=== PATIENT | female | born 1945 | race Caucasian/White ===

== ENCOUNTER 2017-06-01 06:57 | Emergency (ER) | payer MEDICARE, MEDICAID ==
[~2017-06-01] VITALS: Ht 157.5 cm; Wt 68.5 kg
[2017-06-01 09:17] VITALS: BP 145/53
[2017-06-01 09:28] LABS: Basophils # (auto) 0 uL; Eosinophils # (auto) 0.1 uL; Eosinophils % (auto) 2.1 % (0.0-7.0); Hematocrit 41.4 % (36.0-46.0); Hemoglobin 12.5 g/dL (12.2-16.2); Lymphocytes # (auto) 0.4 uL; Lymphocytes % (auto) 14.8 % (10.0-50.0); Mean Corpuscular Hemoglobin 29.5 pg (28.0-32.0); Mean Corpuscular Hgb Conc. 30.2 g/dL (32.0-36.0); Mean Corpuscular Volume 97.8 fL (80.0-100.0); Mean Platelet Volume 8.8 fL (6.9-10.8); Monocytes # (auto) 0.5 uL; Monocytes % (auto) 15.9 % (0.0-12.0); Neutrophils # (auto) 1.9 uL; Neutrophils % (auto) 66.2 % (37.0-80.0); Nucleated Red Blood Cells % 0.1 %; Platelet Count (auto) 84 10^3/uL (140-450); Red Cell Distribution Width 19.8 % (11.8-14.3); White Blood Cell 2.9 10^3/uL (4.4-10.8)
[2017-06-01 09:31] LABS: INR 2.19 (0.9-1.15); Partial Thromboplastin Time 36.5 sec (22.64-33.71); Prothrombin Time 24.1 sec (9.37-12.3)
[2017-06-01 09:42] LABS: Calcium 9.3 mg/dL (8.5-10.1); Potassium 3.9 mmol/L (3.5-5.1)
== END 2017-06-01 11:13 | disposition home or self-care (01) ==
LOC: ER 06:57
DX: T81.89XA Other complications of procedures, not elsewhere classified, initial encounter (principal); K08.89 Other specified disorders of teeth and supporting structures; Z91.040 Latex allergy status; Y92.89 Other specified places as the place of occurrence of the external cause; Y93.89 Activity, other specified; Y99.8 Other external cause status
CPT/HCPCS: 36415; 80048; 85025; 85610; 85730

== ENCOUNTER 2017-09-14 15:52 | Inpatient (IN) | payer BC, MEDICAID ==
[~2017-09-14] VITALS: Ht 157.5 cm; Wt 74.5 kg
[2017-09-14 16:49] LABS: Basophils # (auto) 0 uL; Eosinophils # (auto) 0 uL; Lymphocytes # (auto) 0.2 uL; Lymphocytes % (auto) 7.6 % (10.0-50.0); Neutrophils # (auto) 2.3 uL; Nucleated Red Blood Cells % 0.1 %
[2017-09-14 17:04] LABS: INR 2.37 (0.9-1.15); Partial Thromboplastin Time 37.2 sec (22.64-33.71); Prothrombin Time 26.1 sec (9.37-12.3)
[2017-09-14 17:05] LABS: Eosinophils % (auto) 1.1 % (0.0-7.0); Mean Corpuscular Hemoglobin 29.1 pg (28.0-32.0); Mean Corpuscular Hgb Conc. 32.5 g/dL (32.0-36.0); Mean Corpuscular Volume 89.3 fL (80.0-100.0); Monocytes # (auto) 0.6 uL; Monocytes % (auto) 17.6 % (0.0-12.0); Neutrophils % (auto) 72.7 % (37.0-80.0); Platelet Count (auto) 113 10^3/uL (140-450); Red Blood Cells 4.14 10^6/uL (4.0-5.20); Red Cell Distribution Width 19.8 % (11.8-14.3); White Blood Cell 3.1 10^3/uL (4.4-10.8)
[2017-09-14 17:08] LABS: Albumin 3.2 g/dL (3.4-5.0); BUN/Creatinine Ratio 35.2; Calcium 8.5 mg/dL (8.5-10.1); Magnesium 2.2 mg/dL (1.6-2.6)
[2017-09-14 17:13] LABS: Bilirubin, Total 2.3 mg/dL (0.2-1.0); Total Protein 7.4 g/dL (6.4-8.2)
[2017-09-14] MEDS ORDERED: MORPHINE SULFATE 4 MG/ML SYR/VIAL IV PRN ×3 (19:00)
[2017-09-14] MEDS ORDERED: FUROSEMIDE 40 MG/4 ML VIAL IV ONE (19:00)
[2017-09-14] MEDS ORDERED: NITROGLYCERIN 0.4 MG SL TAB SL PRN (19:00)
[2017-09-14] MEDS ORDERED: POTASSIUM CHL 20 Meq TABLET PO ONE (19:00)
[2017-09-14] MEDS ORDERED: LACTULOSE 20Gm/30ML SOLN PO PRN (19:00)
[2017-09-14] MEDS ORDERED: PANTOPRAZOLE 40 MG TAB PO ONE (19:00)
[2017-09-14] MEDS ORDERED: LORazepam 0.5 MG TAB PO PRN (19:00)
[2017-09-14] MEDS ORDERED: PROMETHAZINE HCL 25 MG/ML 1ML IV PRN (19:00)
[2017-09-14] MEDS: NITROGLYCERIN 0.2MG/HR TOPICAL PATCH TD SCH (19:01)
[2017-09-14] MEDS ORDERED: WARFARIN SODIUM 5 MG TAB PO ONE (19:15)
[2017-09-14] MEDS ORDERED: SPIRONOLACTONE 25 MG TAB PO ONE (19:15)
[2017-09-14 19:32] LABS: Amylase 71 U/L (25-115); Lipase 174 U/L (73-393)
[2017-09-14] MEDS: FUROSEMIDE 40 MG/4 ML VIAL IV SCH (19:55)
[2017-09-14 21:00] VITALS: BP 135/61
[2017-09-15] VITALS (7 sets, daily range): BP systolic 106–135; BP diastolic 33–61
[2017-09-15 01:14] LABS: Urine Bacteria FEW /hpf (None Seen); Urine Blood 3+ /uL (Negative); Urine Hyaline Cast MANY /lpf (0 - 2); Urine Mucus FEW (None Seen); Urine Specific Gravity 1.014 (1.001-1.035); Urine WBC 148 /hpf (0 - 5); Urine WBC Clumps PRESENT /hpf (None Seen)
[2017-09-15] MEDS ORDERED: cefTRIAXone 1GM/10ml IVPUSH 10 ML IV ONE (06:30)
[2017-09-15] MEDS: FUROSEMIDE 40 MG/4 ML VIAL IV SCH ×2 (06:48→18:18)
[2017-09-15] MEDS: ACETAMINOPHEN 500 MG TAB PO PRN (06:49)
[2017-09-15 06:57] LABS: Hematocrit 36.4 % (36.0-46.0); Mean Corpuscular Hemoglobin 29.6 pg (28.0-32.0); Mean Corpuscular Hgb Conc. 33.1 g/dL (32.0-36.0); Mean Corpuscular Volume 89.5 fL (80.0-100.0); Platelet Count (auto) 109 10^3/uL (140-450); Red Blood Cells 4.06 10^6/uL (4.0-5.20); Red Cell Distribution Width 19.8 % (11.8-14.3); White Blood Cell 3.8 10^3/uL (4.4-10.8)
[2017-09-15 06:59] LABS: Band Neutrophils % (manual) 0; Basophils % (manual) 0 (0.0-2.0); Blast Cells 0; Metamyelocytes % 0; Myelocytes % 0; Promyelocytes % 0; Reactive Lymphocytes 0
[2017-09-15 07:04] LABS: INR 2.07 (0.9-1.15); Partial Thromboplastin Time 37.3 sec (22.64-33.71); Prothrombin Time 22.7 sec (9.37-12.3)
[2017-09-15 07:33] LABS: Albumin 3.2 g/dL (3.4-5.0); BUN/Creatinine Ratio 36.8; Bilirubin, Total 2.3 mg/dL (0.2-1.0); Calcium 8.7 mg/dL (8.5-10.1); Potassium 4.6 mmol/L (3.5-5.1); Total Protein 7.5 g/dL (6.4-8.2)
[2017-09-15 08:33] LABS: Eosinophils % (manual) 1 (0-7); Lymphocytes % (manual) 12 (10.0-50.0); Monocytes % (manual) 15 (0-12)
[2017-09-15] MEDS: PANTOPRAZOLE 40 MG TAB PO SCH (09:35)
[2017-09-15] MEDS: SPIRONOLACTONE 25 MG TAB PO SCH (09:36)
[2017-09-15] MEDS: POTASSIUM CHL 20 Meq TABLET PO SCH (09:36)
[2017-09-15] MEDS: ENALAPRIL MALEATE 2.5 MG TAB PO SCH (09:37)
[2017-09-15] MEDS ORDERED: FUROSEMIDE 40 MG/4 ML VIAL IV SCH (10:00)
[2017-09-15] MEDS ORDERED: METO25TA5 PO (10:54)
[2017-09-15] MEDS ORDERED: BUME2TAB3 PO (10:54)
[2017-09-15] MEDS ORDERED: CHOL200031 PO (10:54)
[2017-09-15] MEDS ORDERED: TRIA0.5C10 TOP (10:54)
[2017-09-15] MEDS ORDERED: IBUP800T24 PO (10:54)
[2017-09-15] MEDS ORDERED: LEVO175T31 PO (10:54)
[2017-09-15] MEDS ORDERED: WARF1TAB36 PO (10:54)
[2017-09-15] MEDS ORDERED: HYDR-4683 PO (10:54)
[2017-09-15] MEDS ORDERED: WARF4TAB33 PO (10:54)
[2017-09-15] MEDS ORDERED: DIGO0.1262 PO (10:54)
[2017-09-15] MEDS ORDERED: LOSA50TA6 PO (10:54)
[2017-09-15] MEDS ORDERED: BUPR100T14 PO (10:54)
[2017-09-15] MEDS ORDERED: WARFARIN SODIUM 2 MG TAB PO ONE (17:00)
[2017-09-15] MEDS: NITROGLYCERIN 0.2MG/HR TOPICAL PATCH TD SCH (18:19)
[2017-09-15] MEDS: CIPROFLOXACIN 0.3%OPTH(EYE) SOL 5ML LEFTEYE SCH (22:00)
[2017-09-16] MEDS: CIPROFLOXACIN 0.3%OPTH(EYE) SOL 5ML LEFTEYE SCH ×4 (01:43→14:23)
[2017-09-16 04:50] VITALS: BP 96/27
[2017-09-16] MEDS: FUROSEMIDE 40 MG/4 ML VIAL IV SCH ×2 (06:23→17:24)
[2017-09-16 07:59] LABS: INR 2.04 (0.9-1.15); Partial Thromboplastin Time 31.5 sec (22.64-33.71); Prothrombin Time 22.4 sec (9.37-12.3)
[2017-09-16 08:12] VITALS: BP 115/72
[2017-09-16] MEDS: cefTRIAXone 1GM/10ml IVPUSH 10 ML IV SCH (09:40)
[2017-09-16] MEDS: POTASSIUM CHL 20 Meq TABLET PO SCH (09:40)
[2017-09-16] MEDS: PANTOPRAZOLE 40 MG TAB PO SCH (09:41)
[2017-09-16] MEDS: ENALAPRIL MALEATE 2.5 MG TAB PO SCH (09:41)
[2017-09-16] MEDS: SPIRONOLACTONE 25 MG TAB PO SCH (09:41)
[2017-09-16 12:57] VITALS: BP 126/73
[2017-09-16] MEDS: ACETAMINOPHEN 500 MG TAB PO PRN (14:27)
[2017-09-16] MEDS ORDERED: WARFARIN SODIUM 2.5 MG TAB PO ONE (17:00)
[2017-09-16 17:16] VITALS: BP 105/65
[2017-09-16] MEDS: NITROGLYCERIN 0.2MG/HR TOPICAL PATCH TD SCH (17:23)
[2017-09-16 20:00] VITALS: BP 115/49
[2017-09-16 22:00] VITALS: BP 115/49
[2017-09-17 05:00] VITALS: BP 110/53
[2017-09-17] MEDS: FUROSEMIDE 40 MG/4 ML VIAL IV SCH ×2 (05:53→16:57)
[2017-09-17 06:56] LABS: INR 2.27 (0.9-1.15); Partial Thromboplastin Time 40.1 sec (22.64-33.71); Prothrombin Time 24.9 sec (9.37-12.3)
[2017-09-17 09:00] VITALS: BP 112/47
[2017-09-17] MEDS: PANTOPRAZOLE 40 MG TAB PO SCH (10:53)
[2017-09-17] MEDS: ENALAPRIL MALEATE 2.5 MG TAB PO SCH (10:53)
[2017-09-17] MEDS: cefTRIAXone 1GM/10ml IVPUSH 10 ML IV SCH (10:53)
[2017-09-17] MEDS: POTASSIUM CHL 20 Meq TABLET PO SCH (10:53)
[2017-09-17] MEDS: SPIRONOLACTONE 25 MG TAB PO SCH (10:54)
[2017-09-17] MEDS: HYDROcodone-ACET 5/325MG TAB PO PRN (11:04)
[2017-09-17 12:33] VITALS: BP 128/67
[2017-09-17 16:40] VITALS: BP 123/62
[2017-09-17] MEDS: NITROGLYCERIN 0.2MG/HR TOPICAL PATCH TD SCH (16:57)
[2017-09-17] MEDS ORDERED: WARFARIN SODIUM 5 MG TAB PO ONE (17:00)
[2017-09-17 20:00] VITALS: BP 117/35
[2017-09-17 22:00] VITALS: BP 117/35
[2017-09-18 05:00] VITALS: BP 128/70
[2017-09-18] MEDS: FUROSEMIDE 40 MG/4 ML VIAL IV SCH (05:54)
[2017-09-18 05:56] LABS: INR 2.5 (0.9-1.15); Prothrombin Time 27.5 sec (9.37-12.3)
[2017-09-18 06:15] LABS: Albumin 3.2 g/dL (3.4-5.0); BUN/Creatinine Ratio 40.8; Bilirubin, Total 1.3 mg/dL (0.2-1.0); Calcium 8.2 mg/dL (8.5-10.1); Potassium 5.5 mmol/L (3.5-5.1); Total Protein 7.8 g/dL (6.4-8.2)
[2017-09-18] MEDS: ACETAMINOPHEN 500 MG TAB PO PRN (06:21)
[2017-09-18 08:15] VITALS: BP 120/61
[2017-09-18] MEDS ORDERED: SODIUM CHLORIDE 0.9% 1,000 ML IV ONE (08:15)
[2017-09-18] MEDS ORDERED: SODIUM POLYSTYRENE SULF 15GM/60ML SUSP PO ONE (08:15)
[2017-09-18 08:28] VITALS: BP 120/61
[2017-09-18] MEDS: PANTOPRAZOLE 40 MG TAB PO SCH (09:52)
[2017-09-18] MEDS: SPIRONOLACTONE 25 MG TAB PO SCH (09:52)
[2017-09-18] MEDS: cefTRIAXone 1GM/10ml IVPUSH 10 ML IV SCH (09:52)
[2017-09-18] MEDS: POTASSIUM CHL 20 Meq TABLET PO SCH (09:53)
[2017-09-18] MEDS: FUROSEMIDE INJECTION 250 MG in SODIUM CHL 0.9% 225 ML IV SCH (10:30)
[2017-09-18 12:17] VITALS: BP 114/52
[2017-09-18] MEDS: HYDROcodone-ACET 5/325MG TAB PO PRN (15:28)
[2017-09-18 16:17] VITALS: BP 141/61
[2017-09-18] MEDS ORDERED: WARFARIN SODIUM 1 MG TAB PO ONE (17:00)
[2017-09-18] MEDS: NITROGLYCERIN 0.2MG/HR TOPICAL PATCH TD SCH (18:20)
[2017-09-18 22:00] VITALS: BP 124/66
[2017-09-18] MEDS: TEMAZEPAM 15 MG CAP PO PRN (22:55)
[2017-09-19 05:00] VITALS: BP 109/54
[2017-09-19 07:39] LABS: INR 2.81 (0.9-1.15); Partial Thromboplastin Time 32.4 sec (22.64-33.71)
[2017-09-19 07:58] LABS: Albumin 3.1 g/dL (3.4-5.0); BUN/Creatinine Ratio 45.6; Calcium 8.2 mg/dL (8.5-10.1)
[2017-09-19 08:02] LABS: Bilirubin, Total 1.2 mg/dL (0.2-1.0); Total Protein 7.4 g/dL (6.4-8.2)
[2017-09-19 09:00] VITALS: BP 136/77
[2017-09-19] MEDS: SPIRONOLACTONE 25 MG TAB PO SCH (10:25)
[2017-09-19] MEDS: cefTRIAXone 1GM/10ml IVPUSH 10 ML IV SCH (10:25)
[2017-09-19] MEDS: FUROSEMIDE INJECTION 250 MG in SODIUM CHL 0.9% 225 ML IV SCH (10:25)
[2017-09-19] MEDS: POTASSIUM CHL 20 Meq TABLET PO SCH (10:25)
[2017-09-19] MEDS: PANTOPRAZOLE 40 MG TAB PO SCH (10:26)
[2017-09-19 12:23] VITALS: BP 130/80
[2017-09-19 17:06] VITALS: BP 119/65
[2017-09-19] MEDS ORDERED: LIDOCAINE 1% HCL (LOCAL ANESTH.) INJ 20ML MDV ID ONE (18:00)
[2017-09-19] MEDS: NITROGLYCERIN 0.2MG/HR TOPICAL PATCH TD SCH (18:19)
[2017-09-19 22:00] VITALS: BP 125/53
[2017-09-19] MEDS: SODIUM CHLOR 0.9% PF (SALINE LOCK) 10ML VIAL IV SCH (22:17)
[2017-09-19] MEDS: TEMAZEPAM 15 MG CAP PO PRN (22:17)
[2017-09-19] MEDS: HYDROcodone-ACET 5/325MG TAB PO PRN (23:46)
[2017-09-20 05:00] VITALS: BP 140/60
[2017-09-20 06:23] LABS: Basophils # (auto) 0 uL; Basophils % (auto) 1.1 % (0.0-2.0); Eosinophils # (auto) 0.1 uL; Eosinophils % (auto) 1.6 % (0.0-7.0); Hemoglobin 11.4 g/dL (12.2-16.2); Lymphocytes # (auto) 0.3 uL; Lymphocytes % (auto) 8.7 % (10.0-50.0); Mean Corpuscular Hemoglobin 29.2 pg (28.0-32.0); Mean Corpuscular Hgb Conc. 32.6 g/dL (32.0-36.0); Mean Corpuscular Volume 89.7 fL (80.0-100.0); Monocytes # (auto) 0.5 uL; Monocytes % (auto) 15.8 % (0.0-12.0); Neutrophils # (auto) 2.4 uL; Neutrophils % (auto) 72.8 % (37.0-80.0); Nucleated Red Blood Cells % 0.1 %; Platelet Count (auto) 111 10^3/uL (140-450); White Blood Cell 3.2 10^3/uL (4.4-10.8)
[2017-09-20 06:38] LABS: INR 2.25 (0.9-1.15); Partial Thromboplastin Time 40.2 sec (22.64-33.71); Prothrombin Time 24.7 sec (9.37-12.3)
[2017-09-20 06:47] LABS: BUN/Creatinine Ratio 46.7; Calcium 8.4 mg/dL (8.5-10.1); Magnesium 2.4 mg/dL (1.6-2.6); Potassium 4.4 mmol/L (3.5-5.1)
[2017-09-20 09:00] VITALS: BP 138/61
[2017-09-20] MEDS: PANTOPRAZOLE 40 MG TAB PO SCH (09:32)
[2017-09-20] MEDS: SPIRONOLACTONE 25 MG TAB PO SCH (09:32)
[2017-09-20] MEDS: POTASSIUM CHL 20 Meq TABLET PO SCH (09:32)
[2017-09-20] MEDS: SODIUM CHLOR 0.9% PF (SALINE LOCK) 10ML VIAL IV SCH ×2 (09:34→22:00)
[2017-09-20] MEDS: FUROSEMIDE INJECTION 250 MG in SODIUM CHL 0.9% 225 ML IV SCH (09:34)
[2017-09-20] MEDS: cefTRIAXone 1GM/10ml IVPUSH 10 ML IV SCH (09:44)
[2017-09-20 13:00] VITALS: BP 126/60
[2017-09-20 15:00] LABS: Urine Bacteria FEW /hpf (None Seen); Urine Blood 3+ /uL (Negative); Urine Specific Gravity 1.008 (1.001-1.035); Urine WBC 1 /hpf (0 - 5)
[2017-09-20 15:18] LABS: Hematocrit 35.5 % (36.0-46.0); Hemoglobin 11.5 g/dL (12.2-16.2)
[2017-09-20 16:40] VITALS: BP 125/64
[2017-09-20] MEDS ORDERED: WARFARIN SODIUM 2.5 MG TAB PO ONE (17:00)
[2017-09-20] MEDS: NITROGLYCERIN 0.2MG/HR TOPICAL PATCH TD SCH (17:23)
[2017-09-20] MEDS: HYDROcodone-ACET 5/325MG TAB PO PRN (20:11)
[2017-09-20 22:00] VITALS: BP 136/62
[2017-09-21] VITALS (7 sets, daily range): BP systolic 121–139; BP diastolic 58–76
[2017-09-21 05:40] LABS: Hematocrit 34.4 % (36.0-46.0); Hemoglobin 11.3 g/dL (12.2-16.2); Mean Corpuscular Hemoglobin 29.4 pg (28.0-32.0); Mean Corpuscular Hgb Conc. 32.9 g/dL (32.0-36.0); Mean Corpuscular Volume 89.3 fL (80.0-100.0); Platelet Count (auto) 117 10^3/uL (140-450); Red Blood Cells 3.85 10^6/uL (4.0-5.20); Red Cell Distribution Width 19.3 % (11.8-14.3); White Blood Cell 3.2 10^3/uL (4.4-10.8)
[2017-09-21 05:52] LABS: Band Neutrophils % (manual) 0
[2017-09-21 05:53] LABS: Basophils % (manual) 0 (0.0-2.0); Blast Cells 0; INR 1.89 (0.9-1.15); Metamyelocytes % 0; Myelocytes % 0; Promyelocytes % 0; Prothrombin Time 20.7 sec (9.37-12.3); Reactive Lymphocytes 0
[2017-09-21 05:58] LABS: BUN/Creatinine Ratio 42.7; Calcium 8.5 mg/dL (8.5-10.1); Magnesium 2.2 mg/dL (1.6-2.6); Potassium 4.4 mmol/L (3.5-5.1)
[2017-09-21 07:04] LABS: Eosinophils % (manual) 3 (0-7); Lymphocytes % (manual) 7 (10.0-50.0); Monocytes % (manual) 11 (0-12)
[2017-09-21] MEDS: FUROSEMIDE INJECTION 250 MG in SODIUM CHL 0.9% 225 ML IV SCH (09:27)
[2017-09-21] MEDS: SODIUM CHLOR 0.9% PF (SALINE LOCK) 10ML VIAL IV SCH ×2 (09:27→21:45)
[2017-09-21] MEDS: PANTOPRAZOLE 40 MG TAB PO SCH (09:28)
[2017-09-21] MEDS: SPIRONOLACTONE 25 MG TAB PO SCH (09:28)
[2017-09-21] MEDS: POTASSIUM CHL 20 Meq TABLET PO SCH (09:28)
[2017-09-21] MEDS: ALBUMIN 25% 100 ML IV SCH ×2 (12:28→18:02)
[2017-09-21] MEDS ORDERED: WARFARIN SODIUM 5 MG TAB PO ONE (17:00)
[2017-09-21] MEDS: NITROGLYCERIN 0.2MG/HR TOPICAL PATCH TD SCH (18:00)
[2017-09-21] MEDS: HYDROcodone-ACET 5/325MG TAB PO PRN (21:45)
[2017-09-22] MEDS: ALBUMIN 25% 100 ML IV SCH ×4 (00:15→17:33)
[2017-09-22] MEDS: ACETAMINOPHEN 500 MG TAB PO PRN (00:16)
[2017-09-22 04:54] VITALS: BP 138/63
[2017-09-22 05:51] LABS: Basophils # (auto) 0 uL; Basophils % (auto) 0.7 % (0.0-2.0); Eosinophils # (auto) 0.1 uL; Hemoglobin 11.2 g/dL (12.2-16.2); Lymphocytes # (auto) 0.3 uL; Lymphocytes % (auto) 7.4 % (10.0-50.0); Mean Corpuscular Hemoglobin 29.7 pg (28.0-32.0); Monocytes # (auto) 0.6 uL; Monocytes % (auto) 15.7 % (0.0-12.0); Neutrophils # (auto) 2.8 uL; Neutrophils % (auto) 74.2 % (37.0-80.0); Nucleated Red Blood Cells % 0.2 %; Platelet Count (auto) 103 10^3/uL (140-450); Red Blood Cells 3.77 10^6/uL (4.0-5.20); Red Cell Distribution Width 19.3 % (11.8-14.3); White Blood Cell 3.8 10^3/uL (4.4-10.8)
[2017-09-22 06:01] LABS: INR 1.73 (0.9-1.15)
[2017-09-22 06:13] LABS: Calcium 8.8 mg/dL (8.5-10.1); Magnesium 2.1 mg/dL (1.6-2.6); Potassium 4.4 mmol/L (3.5-5.1)
[2017-09-22 06:15] LABS: BUN/Creatinine Ratio 37.3
[2017-09-22 08:00] VITALS: BP 159/89
[2017-09-22] MEDS: FUROSEMIDE INJECTION 250 MG in SODIUM CHL 0.9% 225 ML IV SCH (08:47)
[2017-09-22] MEDS: PANTOPRAZOLE 40 MG TAB PO SCH (09:55)
[2017-09-22] MEDS: POTASSIUM CHL 20 Meq TABLET PO SCH (09:55)
[2017-09-22] MEDS: SODIUM CHLOR 0.9% PF (SALINE LOCK) 10ML VIAL IV SCH ×2 (09:55→22:00)
[2017-09-22] MEDS: SPIRONOLACTONE 25 MG TAB PO SCH (09:55)
[2017-09-22 12:28] VITALS: BP 138/64
[2017-09-22] MEDS ORDERED: WARFARIN SODIUM 5 MG TAB PO ONE (17:00)
[2017-09-22 17:02] VITALS: BP 147/70
[2017-09-22] MEDS: NITROGLYCERIN 0.2MG/HR TOPICAL PATCH TD SCH (17:34)
[2017-09-22 20:00] VITALS: BP 154/67
[2017-09-22] MEDS: LACTULOSE 20Gm/30ML SOLN PO SCH (21:16)
[2017-09-22 21:30] VITALS: BP 154/67
[2017-09-23 05:00] VITALS: BP 143/60
[2017-09-23 06:39] LABS: Basophils # (auto) 0 uL; Basophils % (auto) 0.9 % (0.0-2.0); Eosinophils # (auto) 0.1 uL; Eosinophils % (auto) 1.7 % (0.0-7.0); Hematocrit 34.1 % (36.0-46.0); Hemoglobin 11.3 g/dL (12.2-16.2); Lymphocytes # (auto) 0.2 uL; Lymphocytes % (auto) 4.9 % (10.0-50.0); Mean Corpuscular Hgb Conc. 33.2 g/dL (32.0-36.0); Mean Corpuscular Volume 90.3 fL (80.0-100.0); Monocytes # (auto) 0.7 uL; Monocytes % (auto) 15.9 % (0.0-12.0); Neutrophils # (auto) 3.2 uL; Neutrophils % (auto) 76.6 % (37.0-80.0); Nucleated Red Blood Cells % 0.1 %; Platelet Count (auto) 107 10^3/uL (140-450); Red Blood Cells 3.78 10^6/uL (4.0-5.20); Red Cell Distribution Width 19.6 % (11.8-14.3); White Blood Cell 4.2 10^3/uL (4.4-10.8)
[2017-09-23 06:53] LABS: INR 1.53 (0.9-1.15); Partial Thromboplastin Time 35.5 sec (22.64-33.71); Prothrombin Time 16.7 sec (9.37-12.3)
[2017-09-23 07:02] LABS: BUN/Creatinine Ratio 37.8; Calcium 9.4 mg/dL (8.5-10.1); Potassium 4.7 mmol/L (3.5-5.1)
[2017-09-23 09:00] VITALS: BP 145/80
[2017-09-23] MEDS: SODIUM CHLOR 0.9% PF (SALINE LOCK) 10ML VIAL IV SCH ×2 (09:54→21:34)
[2017-09-23] MEDS: LACTULOSE 20Gm/30ML SOLN PO SCH ×2 (09:54→21:33)
[2017-09-23] MEDS: SPIRONOLACTONE 25 MG TAB PO SCH ×2 (09:54→17:55)
[2017-09-23] MEDS: PANTOPRAZOLE 40 MG TAB PO SCH (09:54)
[2017-09-23] MEDS: buPROPion HCL 75 MG TAB PO SCH ×2 (09:55→21:33)
[2017-09-23] MEDS: POTASSIUM CHL 20 Meq TABLET PO SCH (09:55)
[2017-09-23] MEDS: HYDROcodone-ACET 5/325MG TAB PO PRN ×2 (11:30→17:55)
[2017-09-23 12:52] VITALS: BP 146/60
[2017-09-23] MEDS ORDERED: METOLAZONE 5 MG TAB PO ONE (14:00)
[2017-09-23] MEDS ORDERED: BUMETANIDE (0.25 MG/ML) INJ 10ML IV ONE (14:00)
[2017-09-23] MEDS: FUROSEMIDE INJECTION 500 MG in D5W 5% 450 ML IV SCH (16:15)
[2017-09-23 16:56] VITALS: BP 151/69
[2017-09-23] MEDS ORDERED: WARFARIN SODIUM 2.5 MG TAB PO ONE (17:00)
[2017-09-23] MEDS: NITROGLYCERIN 0.2MG/HR TOPICAL PATCH TD SCH (17:56)
[2017-09-23] MEDS ORDERED: BUMETANIDE (0.25MG/ML) 4 ML VIAL IV SCH (18:00)
[2017-09-23 20:00] VITALS: BP 150/70
[2017-09-23] MEDS: METOLAZONE 5 MG TAB PO SCH (22:08)
[2017-09-23 22:15] VITALS: BP 150/70
[2017-09-24] MEDS: ACETAMINOPHEN 500 MG TAB PO PRN (02:01)
[2017-09-24] MEDS: HYDROcodone-ACET 5/325MG TAB PO PRN ×3 (04:03→21:44)
[2017-09-24 05:03] VITALS: BP 152/64
[2017-09-24] MEDS: SPIRONOLACTONE 25 MG TAB PO SCH ×2 (05:19→17:34)
[2017-09-24 06:15] LABS: Basophils # (auto) 0 uL; Basophils % (auto) 0.9 % (0.0-2.0); Eosinophils # (auto) 0.1 uL; Eosinophils % (auto) 2.3 % (0.0-7.0); Hematocrit 33.4 % (36.0-46.0); Hemoglobin 10.9 g/dL (12.2-16.2); Lymphocytes # (auto) 0.2 uL; Lymphocytes % (auto) 5.1 % (10.0-50.0); Mean Corpuscular Hemoglobin 29.7 pg (28.0-32.0); Mean Corpuscular Hgb Conc. 32.6 g/dL (32.0-36.0); Mean Corpuscular Volume 91.1 fL (80.0-100.0); Monocytes # (auto) 0.7 uL; Monocytes % (auto) 16.6 % (0.0-12.0); Neutrophils # (auto) 2.9 uL; Neutrophils % (auto) 75.1 % (37.0-80.0); Platelet Count (auto) 107 10^3/uL (140-450); Red Blood Cells 3.67 10^6/uL (4.0-5.20); Red Cell Distribution Width 19.7 % (11.8-14.3); White Blood Cell 3.9 10^3/uL (4.4-10.8)
[2017-09-24 06:26] LABS: INR 1.72 (0.9-1.15); Prothrombin Time 18.8 sec (9.37-12.3)
[2017-09-24 06:33] LABS: Calcium 9.5 mg/dL (8.5-10.1); Potassium 4.8 mmol/L (3.5-5.1)
[2017-09-24 09:00] VITALS: BP 127/66
[2017-09-24] MEDS: buPROPion HCL 75 MG TAB PO SCH ×2 (09:12→21:24)
[2017-09-24] MEDS: LACTULOSE 20Gm/30ML SOLN PO SCH ×2 (09:12→21:25)
[2017-09-24] MEDS: POTASSIUM CHL 20 Meq TABLET PO SCH (09:12)
[2017-09-24] MEDS: PANTOPRAZOLE 40 MG TAB PO SCH (09:12)
[2017-09-24] MEDS: SODIUM CHLOR 0.9% PF (SALINE LOCK) 10ML VIAL IV SCH ×2 (09:12→21:25)
[2017-09-24] MEDS: METOLAZONE 5 MG TAB PO SCH ×2 (09:13→21:25)
[2017-09-24 13:00] VITALS: BP 142/64
[2017-09-24] MEDS: FUROSEMIDE INJECTION 500 MG in D5W 5% 450 ML IV SCH (15:49)
[2017-09-24 16:28] VITALS: BP 148/64
[2017-09-24] MEDS ORDERED: WARFARIN SODIUM 2.5 MG TAB PO ONE (17:00)
[2017-09-24 17:38] LABS: Calcium 9.4 mg/dL (8.5-10.1); Potassium 5.2 mmol/L (3.5-5.1)
[2017-09-24 17:40] LABS: BUN/Creatinine Ratio 34.6
[2017-09-24] MEDS: NITROGLYCERIN 0.2MG/HR TOPICAL PATCH TD SCH (17:47)
[2017-09-24 20:00] VITALS: BP 153/56
[2017-09-24 22:00] VITALS: BP 153/56
[2017-09-25 05:00] VITALS: BP 151/70
[2017-09-25] MEDS: SPIRONOLACTONE 25 MG TAB PO SCH ×2 (05:45→17:26)
[2017-09-25 06:55] LABS: BUN/Creatinine Ratio 35.6; Calcium 9.4 mg/dL (8.5-10.1); Potassium 4.6 mmol/L (3.5-5.1)
[2017-09-25 09:00] VITALS: BP 142/57
[2017-09-25] MEDS: SODIUM CHLOR 0.9% PF (SALINE LOCK) 10ML VIAL IV SCH ×2 (10:12→22:04)
[2017-09-25] MEDS: buPROPion HCL 75 MG TAB PO SCH ×2 (10:12→22:05)
[2017-09-25] MEDS: PANTOPRAZOLE 40 MG TAB PO SCH (10:12)
[2017-09-25] MEDS: METOLAZONE 5 MG TAB PO SCH ×2 (10:13→22:05)
[2017-09-25] MEDS: POTASSIUM CHL 20 Meq TABLET PO SCH (10:13)
[2017-09-25] MEDS: LACTULOSE 20Gm/30ML SOLN PO SCH ×2 (10:13→22:05)
[2017-09-25 10:48] LABS: INR 2.18 (0.9-1.15)
[2017-09-25] MEDS: HYDROcodone-ACET 5/325MG TAB PO PRN (11:14)
[2017-09-25] MEDS ORDERED: cefTRIAXone 1GM/10ml IVPUSH 10 ML IV ONE (12:15)
[2017-09-25 13:00] VITALS: BP_SYST 142; BP_SYST 148; BP_DIAS 57; BP_DIAS 64
[2017-09-25] MEDS: ARTIFICIAL TEARS 15ml EACHEYE PRN (13:47)
[2017-09-25 14:15] LABS: BUN/Creatinine Ratio 35.4; Calcium 9.6 mg/dL (8.5-10.1); Potassium 4.8 mmol/L (3.5-5.1)
[2017-09-25] MEDS: FUROSEMIDE INJECTION 500 MG in D5W 5% 450 ML IV SCH (14:59)
[2017-09-25] MEDS ORDERED: WARFARIN SODIUM 2.5 MG TAB PO ONE (17:00)
[2017-09-25 17:06] VITALS: BP 127/58
[2017-09-25] MEDS: NITROGLYCERIN 0.2MG/HR TOPICAL PATCH TD SCH (17:27)
[2017-09-25] MEDS: MORPHINE SULFATE 4 MG/ML SYR/VIAL IV PRN (18:34)
[2017-09-25 22:00] VITALS: BP 143/75
[2017-09-25] MEDS: TEMAZEPAM 15 MG CAP PO PRN (22:15)
[2017-09-26 05:21] VITALS: BP 129/61
[2017-09-26] MEDS: SPIRONOLACTONE 25 MG TAB PO SCH ×2 (06:01→17:29)
[2017-09-26 06:53] LABS: Basophils # (auto) 0 uL; Basophils % (auto) 1.2 % (0.0-2.0); Eosinophils # (auto) 0.1 uL; Eosinophils % (auto) 4.3 % (0.0-7.0); Hematocrit 33.1 % (36.0-46.0); Hemoglobin 10.9 g/dL (12.2-16.2); Lymphocytes # (auto) 0.3 uL; Lymphocytes % (auto) 7.6 % (10.0-50.0); Mean Corpuscular Hemoglobin 29.5 pg (28.0-32.0); Mean Corpuscular Volume 89.4 fL (80.0-100.0); Monocytes # (auto) 0.6 uL; Monocytes % (auto) 16.6 % (0.0-12.0); Neutrophils # (auto) 2.3 uL; Neutrophils % (auto) 70.3 % (37.0-80.0); Nucleated Red Blood Cells % 0.1 %; Platelet Count (auto) 106 10^3/uL (140-450); Red Cell Distribution Width 19.8 % (11.8-14.3); White Blood Cell 3.3 10^3/uL (4.4-10.8)
[2017-09-26 07:05] LABS: INR 2.31 (0.9-1.15); Prothrombin Time 25.4 sec (9.37-12.3)
[2017-09-26 07:22] LABS: Calcium 9.4 mg/dL (8.5-10.1)
[2017-09-26 07:34] LABS: BUN/Creatinine Ratio 39.3
[2017-09-26 08:26] VITALS: BP 128/63
[2017-09-26] MEDS ORDERED: cefTRIAXone 1GM/10ml IVPUSH 10 ML IV SCH (09:00)
[2017-09-26] MEDS: ARTIFICIAL TEARS 15ml EACHEYE PRN (09:58)
[2017-09-26] MEDS: LACTULOSE 20Gm/30ML SOLN PO SCH ×2 (10:03→22:03)
[2017-09-26] MEDS: POTASSIUM CHL 20 Meq TABLET PO SCH (10:03)
[2017-09-26] MEDS: buPROPion HCL 75 MG TAB PO SCH ×2 (10:04→22:03)
[2017-09-26] MEDS: METOLAZONE 5 MG TAB PO SCH (10:04)
[2017-09-26] MEDS: SODIUM CHLOR 0.9% PF (SALINE LOCK) 10ML VIAL IV SCH ×2 (10:04→22:03)
[2017-09-26] MEDS: PANTOPRAZOLE 40 MG TAB PO SCH (10:04)
[2017-09-26 12:56] VITALS: BP 120/66
[2017-09-26 16:34] VITALS: BP 109/53
[2017-09-26] MEDS ORDERED: WARFARIN SODIUM 2.5 MG TAB PO ONE (17:00)
[2017-09-26] MEDS: FUROSEMIDE 40 MG/4 ML VIAL IV SCH (17:29)
[2017-09-26] MEDS: NITROGLYCERIN 0.2MG/HR TOPICAL PATCH TD SCH (17:30)
[2017-09-26] MEDS: ACETAMINOPHEN 500 MG TAB PO PRN (17:44)
[2017-09-26 21:54] VITALS: BP 125/50
[2017-09-26] MEDS ORDERED: METOLAZONE 5 MG TAB PO SCH (22:00)
[2017-09-26] MEDS: TEMAZEPAM 15 MG CAP PO PRN (22:02)
[2017-09-27 05:00] VITALS: BP 127/62
[2017-09-27] MEDS: SPIRONOLACTONE 25 MG TAB PO SCH (06:08)
[2017-09-27] MEDS: FUROSEMIDE 40 MG/4 ML VIAL IV SCH ×2 (06:08→17:50)
[2017-09-27 06:34] LABS: Basophils # (auto) 0 uL; Basophils % (auto) 0.8 % (0.0-2.0); Eosinophils # (auto) 0.1 uL; Eosinophils % (auto) 2.5 % (0.0-7.0); Hematocrit 33.1 % (36.0-46.0); Hemoglobin 10.9 g/dL (12.2-16.2); Lymphocytes # (auto) 0.3 uL; Lymphocytes % (auto) 8.5 % (10.0-50.0); Mean Corpuscular Hemoglobin 29.3 pg (28.0-32.0); Mean Corpuscular Volume 88.8 fL (80.0-100.0); Monocytes # (auto) 0.5 uL; Neutrophils # (auto) 2.4 uL; Neutrophils % (auto) 72.2 % (37.0-80.0); Nucleated Red Blood Cells % 0.1 %; Platelet Count (auto) 103 10^3/uL (140-450); Red Blood Cells 3.73 10^6/uL (4.0-5.20); Red Cell Distribution Width 19.7 % (11.8-14.3); White Blood Cell 3.3 10^3/uL (4.4-10.8)
[2017-09-27 06:46] LABS: INR 2.7 (0.9-1.15); Prothrombin Time 29.7 sec (9.37-12.3)
[2017-09-27 06:47] LABS: Calcium 9.4 mg/dL (8.5-10.1); Potassium 5.1 mmol/L (3.5-5.1)
[2017-09-27 09:00] VITALS: BP 141/62
[2017-09-27] MEDS: LACTULOSE 20Gm/30ML SOLN PO SCH ×2 (09:36→22:10)
[2017-09-27] MEDS: POTASSIUM CHL 20 Meq TABLET PO SCH (09:37)
[2017-09-27] MEDS: SODIUM CHLOR 0.9% PF (SALINE LOCK) 10ML VIAL IV SCH (09:37)
[2017-09-27] MEDS: buPROPion HCL 75 MG TAB PO SCH ×2 (09:37→22:02)
[2017-09-27] MEDS: PANTOPRAZOLE 40 MG TAB PO SCH (09:37)
[2017-09-27] MEDS ORDERED: PROMETHAZINE HCL 25 MG/ML 1ML IV PRN (11:30)
[2017-09-27] MEDS ORDERED: ACETAMINOPHEN 500 MG TAB PO PRN (11:30)
[2017-09-27 13:03] VITALS: BP 123/55
[2017-09-27 13:45] LABS: Calcium 9.4 mg/dL (8.5-10.1); Potassium 5.2 mmol/L (3.5-5.1)
[2017-09-27 13:47] LABS: BUN/Creatinine Ratio 40.5
[2017-09-27 16:28] VITALS: BP 156/62
[2017-09-27] MEDS ORDERED: WARFARIN SODIUM 5 MG TAB PO ONE (17:00)
[2017-09-27] MEDS: NITROGLYCERIN 0.2MG/HR TOPICAL PATCH TD SCH (17:51)
[2017-09-27] MEDS: BACLOFEN 10 MG TAB PO PRN (18:04)
[2017-09-27] MEDS: LORazepam 0.5 MG TAB PO PRN ×2 (20:09→22:17)
[2017-09-27] MEDS: MORPHINE SULFATE 4 MG/ML SYR/VIAL IV PRN (20:28)
[2017-09-27 22:00] VITALS: BP 144/61
[2017-09-27] MEDS: acetaZOLAMIDE 250 MG TAB PO SCH (22:04)
[2017-09-27] MEDS: HYDROcodone-ACET 5/325MG TAB PO PRN (22:07)
[2017-09-27] MEDS ORDERED: ALBUTEROL SULF 2.5 MG/0.5ML(0.5%) NEB SOLN NEB PRN (23:45)
[2017-09-28 00:57] VITALS: BP 144/61
[2017-09-28] MEDS: SODIUM CHLOR 0.9% PF (SALINE LOCK) 10ML VIAL IV SCH ×3 (03:54→22:33)
[2017-09-28 05:00] VITALS: BP 148/56
[2017-09-28 05:43] LABS: INR 2.67 (0.9-1.15); Prothrombin Time 29.4 sec (9.37-12.3)
[2017-09-28 05:49] LABS: Albumin 3.9 g/dL (3.4-5.0); Calcium 9.3 mg/dL (8.5-10.1); Potassium 4.8 mmol/L (3.5-5.1)
[2017-09-28 05:52] LABS: BUN/Creatinine Ratio 43.4
[2017-09-28 05:54] LABS: Bilirubin, Total 1.3 mg/dL (0.2-1.0); Total Protein 7.4 g/dL (6.4-8.2)
[2017-09-28] MEDS: FUROSEMIDE 40 MG/4 ML VIAL IV SCH ×2 (06:52→18:22)
[2017-09-28 09:00] VITALS: BP 142/73
[2017-09-28] MEDS: POTASSIUM CHL 20 Meq TABLET PO SCH (10:19)
[2017-09-28] MEDS: LACTULOSE 20Gm/30ML SOLN PO SCH ×2 (10:19→22:32)
[2017-09-28] MEDS: PANTOPRAZOLE 40 MG TAB PO SCH (10:20)
[2017-09-28] MEDS: acetaZOLAMIDE 250 MG TAB PO SCH ×2 (10:21→22:33)
[2017-09-28] MEDS: buPROPion HCL 75 MG TAB PO SCH ×2 (10:21→22:32)
[2017-09-28 13:00] VITALS: BP 138/71
[2017-09-28] MEDS: BACLOFEN 10 MG TAB PO PRN (15:35)
[2017-09-28 17:00] VITALS: BP 128/60
[2017-09-28] MEDS ORDERED: WARFARIN SODIUM 5 MG TAB PO ONE (17:00)
[2017-09-28] MEDS: NITROGLYCERIN 0.2MG/HR TOPICAL PATCH TD SCH (18:22)
[2017-09-28 22:22] VITALS: BP 146/67
[2017-09-29] VITALS (7 sets, daily range): BP systolic 130–143; BP diastolic 59–76
[2017-09-29] MEDS: FUROSEMIDE 40 MG/4 ML VIAL IV SCH ×2 (06:08→17:38)
[2017-09-29 07:25] LABS: Basophils # (auto) 0 uL; Basophils % (auto) 0.9 % (0.0-2.0); Eosinophils # (auto) 0.1 uL; Eosinophils % (auto) 2.1 % (0.0-7.0); Hematocrit 34.2 % (36.0-46.0); Hemoglobin 11.1 g/dL (12.2-16.2); Lymphocytes # (auto) 0.3 uL; Lymphocytes % (auto) 8.7 % (10.0-50.0); Mean Corpuscular Hemoglobin 29.2 pg (28.0-32.0); Mean Corpuscular Hgb Conc. 32.5 g/dL (32.0-36.0); Mean Corpuscular Volume 90.1 fL (80.0-100.0); Monocytes # (auto) 0.5 uL; Monocytes % (auto) 14.4 % (0.0-12.0); Neutrophils # (auto) 2.6 uL; Neutrophils % (auto) 73.9 % (37.0-80.0); Nucleated Red Blood Cells % 0.1 %; Platelet Count (auto) 100 10^3/uL (140-450); Red Cell Distribution Width 19.9 % (11.8-14.3); White Blood Cell 3.5 10^3/uL (4.4-10.8)
[2017-09-29 07:44] LABS: INR 2.74 (0.9-1.15); Prothrombin Time 30.2 sec (9.37-12.3)
[2017-09-29 07:49] LABS: Potassium 3.8 mmol/L (3.5-5.1)
[2017-09-29 07:56] LABS: BUN/Creatinine Ratio 42.6; Calcium 9.8 mg/dL (8.5-10.1)
[2017-09-29] MEDS: buPROPion HCL 75 MG TAB PO SCH ×2 (09:47→22:02)
[2017-09-29] MEDS: POTASSIUM CHL 20 Meq TABLET PO SCH (09:47)
[2017-09-29] MEDS: PANTOPRAZOLE 40 MG TAB PO SCH (09:47)
[2017-09-29] MEDS: acetaZOLAMIDE 250 MG TAB PO SCH ×2 (09:48→22:02)
[2017-09-29] MEDS: LACTULOSE 20Gm/30ML SOLN PO SCH ×2 (09:48→22:02)
[2017-09-29] MEDS: SODIUM CHLOR 0.9% PF (SALINE LOCK) 10ML VIAL IV SCH ×2 (09:53→22:04)
[2017-09-29] MEDS: HYDROcodone-ACET 5/325MG TAB PO PRN ×2 (11:27→22:15)
[2017-09-29] MEDS: BACLOFEN 10 MG TAB PO PRN (11:33)
[2017-09-29] MEDS ORDERED: WARFARIN SODIUM 5 MG TAB PO ONE (17:00)
[2017-09-29] MEDS: NITROGLYCERIN 0.2MG/HR TOPICAL PATCH TD SCH (17:39)
[2017-09-29] MEDS: MORPHINE SULFATE 4 MG/ML SYR/VIAL IV PRN (22:57)
[2017-09-30] VITALS (7 sets, daily range): BP systolic 134–154; BP diastolic 56–72
[2017-09-30 05:39] LABS: INR 2.59 (0.9-1.15); Partial Thromboplastin Time 45.4 sec (22.64-33.71); Prothrombin Time 28.5 sec (9.37-12.3)
[2017-09-30] MEDS: FUROSEMIDE 40 MG/4 ML VIAL IV SCH ×2 (05:55→16:54)
[2017-09-30] MEDS: SODIUM CHLOR 0.9% PF (SALINE LOCK) 10ML VIAL IV SCH ×2 (09:28→22:07)
[2017-09-30] MEDS: LACTULOSE 20Gm/30ML SOLN PO SCH ×2 (09:28→22:07)
[2017-09-30] MEDS: acetaZOLAMIDE 250 MG TAB PO SCH ×2 (09:29→22:08)
[2017-09-30] MEDS: PANTOPRAZOLE 40 MG TAB PO SCH (09:29)
[2017-09-30] MEDS: buPROPion HCL 75 MG TAB PO SCH ×2 (09:29→22:07)
[2017-09-30] MEDS: POTASSIUM CHL 20 Meq TABLET PO SCH (09:29)
[2017-09-30] MEDS: BACLOFEN 10 MG TAB PO PRN (10:39)
[2017-09-30] MEDS: LEVOTHYROXINE SODIUM 50 MCG TAB PO SCH (16:53)
[2017-09-30] MEDS: NITROGLYCERIN 0.2MG/HR TOPICAL PATCH TD SCH (16:54)
[2017-09-30] MEDS ORDERED: WARFARIN SODIUM 2 MG TAB PO ONE (17:00)
[2017-09-30] MEDS ORDERED: WARFARIN SODIUM 1 MG TAB PO ONE (17:00)
[2017-10-01] VITALS (7 sets, daily range): BP systolic 134–154; BP diastolic 55–72
[2017-10-01] MEDS: LEVOTHYROXINE SODIUM 50 MCG TAB PO SCH (06:37)
[2017-10-01] MEDS: FUROSEMIDE 40 MG/4 ML VIAL IV SCH ×2 (06:38→18:19)
[2017-10-01 07:58] LABS: INR 2.63 (0.9-1.15); Partial Thromboplastin Time 46.2 sec (22.64-33.71)
[2017-10-01] MEDS: HYDROcodone-ACET 5/325MG TAB PO PRN (08:16)
[2017-10-01] MEDS: POTASSIUM CHL 20 Meq TABLET PO SCH (10:02)
[2017-10-01] MEDS: LACTULOSE 20Gm/30ML SOLN PO SCH ×2 (10:03→22:45)
[2017-10-01] MEDS: buPROPion HCL 75 MG TAB PO SCH ×2 (10:03→22:45)
[2017-10-01] MEDS: PANTOPRAZOLE 40 MG TAB PO SCH (10:03)
[2017-10-01] MEDS: acetaZOLAMIDE 250 MG TAB PO SCH ×2 (10:03→22:45)
[2017-10-01] MEDS: SODIUM CHLOR 0.9% PF (SALINE LOCK) 10ML VIAL IV SCH ×2 (10:53→22:00)
[2017-10-01] MEDS ORDERED: WARFARIN SODIUM 2 MG TAB PO ONE (17:00)
[2017-10-01] MEDS: NITROGLYCERIN 0.2MG/HR TOPICAL PATCH TD SCH (18:00)
[2017-10-01] MEDS: TEMAZEPAM 15 MG CAP PO PRN (22:51)
[2017-10-02 05:15] VITALS: BP 135/65
[2017-10-02 05:58] LABS: Basophils # (auto) 0 uL; Basophils % (auto) 1.3 % (0.0-2.0); Eosinophils # (auto) 0.1 uL; Eosinophils % (auto) 3.8 % (0.0-7.0); Hematocrit 35.1 % (36.0-46.0); Hemoglobin 11.3 g/dL (12.2-16.2); Lymphocytes # (auto) 0.4 uL; Lymphocytes % (auto) 11.1 % (10.0-50.0); Mean Corpuscular Hemoglobin 29.9 pg (28.0-32.0); Mean Corpuscular Volume 93.3 fL (80.0-100.0); Monocytes # (auto) 0.5 uL; Monocytes % (auto) 14.5 % (0.0-12.0); Neutrophils # (auto) 2.5 uL; Neutrophils % (auto) 69.3 % (37.0-80.0); Nucleated Red Blood Cells % 0.1 %; Platelet Count (auto) 95 10^3/uL (140-450); Red Blood Cells 3.77 10^6/uL (4.0-5.20); Red Cell Distribution Width 19.6 % (11.8-14.3); White Blood Cell 3.6 10^3/uL (4.4-10.8)
[2017-10-02 06:05] LABS: INR 2.52 (0.9-1.15); Prothrombin Time 27.7 sec (9.37-12.3)
[2017-10-02] MEDS: FUROSEMIDE 40 MG/4 ML VIAL IV SCH ×2 (06:45→18:00)
[2017-10-02] MEDS: LEVOTHYROXINE SODIUM 50 MCG TAB PO SCH (06:45)
[2017-10-02 07:24] VITALS: BP 129/68
[2017-10-02 07:30] VITALS: BP 135/65
[2017-10-02] MEDS: LACTULOSE 20Gm/30ML SOLN PO SCH (09:25)
[2017-10-02] MEDS: acetaZOLAMIDE 250 MG TAB PO SCH (09:25)
[2017-10-02] MEDS: SODIUM CHLOR 0.9% PF (SALINE LOCK) 10ML VIAL IV SCH (09:26)
[2017-10-02] MEDS: buPROPion HCL 75 MG TAB PO SCH (09:26)
[2017-10-02] MEDS: POTASSIUM CHL 20 Meq TABLET PO SCH (09:26)
[2017-10-02] MEDS: PANTOPRAZOLE 40 MG TAB PO SCH (09:26)
[2017-10-02] MEDS: ARTIFICIAL TEARS 15ml EACHEYE PRN (10:00)
[2017-10-02 11:05] VITALS: BP 135/65
[2017-10-02 11:34] VITALS: BP 136/47
[2017-10-02 16:31] VITALS: BP 152/70
[2017-10-02] MEDS ORDERED: WARFARIN SODIUM 5 MG TAB PO ONE (17:00)
[2017-10-02] MEDS: NITROGLYCERIN 0.2MG/HR TOPICAL PATCH TD SCH (18:26)
== END 2017-10-02 19:45 | disposition hospice, home (50) | DRG 432 ==
LOC: EDBD 15:52 → ER 15:52 → TELE 15:53 → TELE-WESTW 20:15 → WEST WING 09-17 11:42 → TELE-WESTW 09-21 02:51
PROVIDERS: ADMIT Internal Medicine; ATTEND Internal Medicine
PROC: 05HY33Z Insertion of Infusion Device into Upper Vein, Percutaneous Approach (ICD-10-PCS; principal; 2017-09-19)
DX: K74.60 Unspecified cirrhosis of liver (principal); I50.43 Acute on chronic combined systolic (congestive) and diastolic (congestive) heart failure; E87.4 Mixed disorder of acid-base balance; D61.818 Other pancytopenia; D69.59 Other secondary thrombocytopenia; E87.5 Hyperkalemia; E44.1 Mild protein-calorie malnutrition; E87.1 Hypo-osmolality and hyponatremia; R65.10 Systemic inflammatory response syndrome (SIRS) of non-infectious origin without acute organ dysfunction; I13.0 Hypertensive heart and chronic kidney disease with heart failure and stage 1 through stage 4 chronic kidney disease, or unspecified chronic kidney disease; R18.8 Other ascites; N39.0 Urinary tract infection, site not specified; N18.3 Chronic kidney disease, stage 3 (moderate); I48.91 Unspecified atrial fibrillation; I25.10 Atherosclerotic heart disease of native coronary artery without angina pectoris; E03.9 Hypothyroidism, unspecified; D64.9 Anemia, unspecified; R31.9 Hematuria, unspecified; I50.82 Biventricular heart failure; K80.20 Calculus of gallbladder without cholecystitis without obstruction; E78.5 Hyperlipidemia, unspecified; I08.1 Rheumatic disorders of both mitral and tricuspid valves; E66.9 Obesity, unspecified; T45.515A Adverse effect of anticoagulants, initial encounter; Y92.89 Other specified places as the place of occurrence of the external cause; Z86.73 Personal history of transient ischemic attack (TIA), and cerebral infarction without residual deficits; Z82.49 Family history of ischemic heart disease and other diseases of the circulatory system; Z79.01 Long term (current) use of anticoagulants; Z90.710 Acquired absence of both cervix and uterus; Z95.0 Presence of cardiac pacemaker; Z95.2 Presence of prosthetic heart valve; Z91.040 Latex allergy status; Z80.42 Family history of malignant neoplasm of prostate; Z68.30 Body mass index [BMI] 30.0-30.9, adult
CPT/HCPCS: 36415; 36600; 71045; 74176; 80048; 80053; 80061; 81001; 82040; 82140; 82150; 82550; 82805; 83690; 83735; 83880; 84443; 84484; 85007; 85014; 85018; 85025; 85027; 85610; 85730; 87081; 87086; 93005; 93306; 96374; 97116; 97163; 97530; P9047